=== PATIENT | male | born 1995 | race Caucasian/White ===

== ENCOUNTER 2019-01-20 16:39 | Emergency (ER) | payer OTHER ==
[~2019-01-20] VITALS: Ht 182.9 cm; Wt 85.0 kg
[2019-01-20 16:40] VITALS: BP 154/86
== END 2019-01-20 18:49 | disposition home or self-care (01) ==
LOC: M ED 16:39
DX: N62 Hypertrophy of breast (principal)

== ENCOUNTER 2020-05-27 22:47 | Emergency (ER) | payer OTHER | END 2020-05-27 23:55 | disposition home or self-care (01) | LOC: M ED 22:47 | DX: Z20.828 Contact with and (suspected) exposure to other viral communicable diseases (principal) | CPT/HCPCS: 99282; U0002 ==